=== PATIENT | female | born 1990 | race Caucasian/White ===

== ENCOUNTER 2017-01-23 18:12 | Emergency (ER) | payer MEDICAID ==
[~2017-01-23] VITALS: Ht 154.9 cm; Wt 52.0 kg
[2017-01-23 18:15] VITALS: BP 113/62; PULSE 81; RESP 18; TEMP 97.4; O2SAT 97
--- NOTE | 2017-01-23 18:17 | PD ---
Physical Exam Time Seen by Provider: 18:15 Narrative 26 y/o female with cp, nausea, back pain which started while sitting on a couch. Vital signs reviewed Seen at triage desk. awaiting bed placement. Data Data Last Documented VS Vital Signs Date Time Temp Pulse Resp B/P Pulse Ox O2 Delivery O2 Flow Rate FiO2 01/23/17 18:15 97.4 81 18 113/62 97 MDM Medical Record Reviewed: Yes Supervised Visit with RAVINDER: Nathanael Batista January 23, 2017 18:17
[2017-01-23] MEDS ORDERED: ONDANSETRON HCL 4 MG/2 ML VIAL IVP ONE (18:45)
[2017-01-23] MEDS ORDERED: SODIUM CHLORIDE 0.9% FLUSH 10 ML FLUSH IVF PRN ×2 (18:45)
[2017-01-23] MEDS ORDERED: SODIUM CHLORID 0.9% 500 ML INJ 500 ML IV ONE (18:45)
[2017-01-23] MEDS ORDERED: FAMOTIDINE 20 MG/2 ML VIAL IV PUSH ONE (18:45)
[2017-01-23 18:48] VITALS: BP 125/66; PULSE 68; RESP 16; O2SAT 100
--- NOTE | 2017-01-23 18:55 | PD ---
HPI Chief Complaint: Chest Pain Time Seen by Provider: 18:20 Travel History International Travel<30 days: No Contact w/Intl Traveler<30days: No Traveled to known affect area: No History of Present Illness HPI Patient is a 26-year-old female presenting to the emergency department for evaluation of midsternal chest pain. Patient states it started approximately half an hour prior to arrival. She reports that the pain radiates through to her back, she had an episode of dry heaves at home and reports a headache currently. She also reports epigastric abdominal pain but denies any indigestion, heartburn. She denies any shortness of breath. Patient is a type II diabetic not on any medications currently. She saw her criminal justice lawyer 6 months ago and states was perfect per her report. Patient does not check her blood glucose at home, she endorses daily tobacco use. [facility] Past Medical History Diabetes: Yes Medical other: Yes (mitral valve prolapse) ?: Not Past Surgical History Section: Yes Other Surgery: Yes (wrist) Social History Alcohol Use: Yes (occasionally) Tobacco Use: Yes (daily) Substance Use: No Allergies-Medications (Allergen,Severity, Reaction): Coded Allergies: No Known Allergies (Unverified , 01/23/17) Review of Systems Except as stated in HPI: all other systems reviewed are Neg HENT: Positive: Headaches Cardiovascular: Positive: Chest Pain or Discomfort Respiratory: No: Shortness of Breath Gastrointestinal: Positive: Nausea, Vomiting, Abdominal Pain (epigastric) Genitourinary: No: Dysuria Musculoskeletal: No: Myalgias Neurologic: No: Dizziness, Focal Abnormalities, Change in Mentation Physical Exam Narrative GENERAL: Well-developed, well-nourished, alert female. Appears uncomfortable, in no acute distress. SKIN: Focused skin assessment warm/dry. HEAD: Atraumatic. Normocephalic. EYES: Pupils equal and round. No scleral icterus. No injection or drainage. ENT: No nasal bleeding or discharge. Mucous membranes pink and moist. NECK: Trachea midline. No JVD. CARDIOVASCULAR: Regular rate and rhythm. No murmur appreciated. RESPIRATORY: No accessory muscle use. Clear to auscultation. Breath sounds equal bilaterally. GASTROINTESTINAL: Abdomen soft, mildly tender to epigastric region, nondistended. Hepatic and splenic margins not palpable. MUSCULOSKELETAL: No obvious deformities. No clubbing. No cyanosis. No edema. NEUROLOGICAL: Awake and alert. No obvious cranial nerve deficits. Motor grossly within normal limits. Normal speech. PSYCHIATRIC: Appropriate mood and affect; insight and judgment normal. Data Data Last Documented VS Vital Signs Date Time Temp Pulse Resp B/P Pulse Ox O2 Delivery O2 Flow Rate FiO2 01/23/17 18:48 100 Room Air 01/23/17 18:48 68 16 125/66 01/23/17 18:15 97.4 Orders Electrocardiogram (01/23/17 ) Ckmb (Isoenzyme) Profile (01/23/17 18:35) Complete Blood Count With Diff (01/23/17 18:35) Comprehensive Metabolic Panel (01/23/17 18:35) Magnesium (Mg) (01/23/17 18:35) Prothrombin Time / Inr (Pt) (01/23/17 18:35) Act Partial Throm Time (Ptt) (01/23/17 18:35) Troponin I (01/23/17 18:35) Chest, Single Ap (01/23/17 18:35) Ecg Monitoring (01/23/17 18:35) Bilateral Bp Monitoring (01/23/17 18:35) Iv Access Insert/Monitor (01/23/17 18:35) Oximetry (01/23/17 18:35) Oxygen Administration (01/23/17 18:35) Sodium Chloride 0.9% Flush (Ns Flush) (01/23/17 18:45) Sodium Chlorid 0.9% 500 Ml Inj (Ns 500 M (01/23/17 18:45) Ed Urine Pregnancytest Poc (01/23/17 18:35) Ondansetron Inj (Zofran Inj) (01/23/17 18:45) Sodium Chloride 0.9% Flush (Ns Flush) (01/23/17 18:45) Famotidine Inj (Pepcid Inj) (01/23/17 18:45) Al-Mag Hy-Si 40-40-4 Mg/Ml Liq (Mag-Al P (01/23/17 19:45) Lidocaine 2% Viscous (Xylocaine 2% Visco (01/23/17 19:45) Labs Laboratory Tests Test 01/23/17 18:40 White Blood Count 11.0 TH/MM3 Red Blood Count 4.02 MIL/MM3 Hemoglobin 12.8 GM/DL Hematocrit 37.0 % Mean Corpuscular Volume 92.0 FL Mean Corpuscular Hemoglobin 31.9 PG Mean Corpuscular Hemoglobin 34.6 % Concent Red Cell Distribution Width 12.5 % Platelet Count 220 TH/MM3 Mean Platelet Volume 8.2 FL Neutrophils (%) (Auto) 53.6 % Lymphocytes (%) (Auto) 35.7 % Monocytes (%) (Auto) 5.0 % Eosinophils (%) (Auto) 5.0 % Basophils (%) (Auto) 0.7 % Neutrophils # (Auto) 5.9 TH/MM3 Lymphocytes # (Auto) 3.9 TH/MM3 Monocytes # (Auto) 0.5 TH/MM3 Eosinophils # (Auto) 0.5 TH/MM3 Basophils # (Auto) 0.1 TH/MM3 CBC Comment DIFF FINAL Differential Comment Prothrombin Time 11.1 SEC Prothromb Time International 1.0 RATIO Ratio Activated Partial 26.7 SEC Thromboplast Time Sodium Level 140 MEQ/L Potassium Level 4.0 MEQ/L Chloride Level 105 MEQ/L Carbon Dioxide Level 25.8 MEQ/L Anion Gap 9 MEQ/L Blood Urea Nitrogen 11 MG/DL Creatinine 0.73 MG/DL Estimat Glomerular Filtration 96 ML/MIN Rate Random Glucose 134 MG/DL Calcium Level 8.2 MG/DL Magnesium Level 2.2 MG/DL Total Bilirubin 0.3 MG/DL Aspartate Amino Transf 25 U/L (AST/SGOT) Alanine Aminotransferase 22 U/L (ALT/SGPT) Alkaline Phosphatase 49 U/L Total Creatine Kinase 99 U/L Troponin I LESS THAN 0.02 NG/ML Total Protein 7.4 GM/DL Albumin 4.2 GM/DL MDM Medical Decision Making Medical Screen Exam Complete: Yes Emergency Medical Condition: Yes Interpretation(s) Last Impressions Chest X-Ray 01/23/17 3034 Signed Impressions: Service Date/Time: Monday, January 23, 2017 18:57 - CONCLUSION: Mild right middle lobe infiltrate Jay Patel MD Laboratory Tests Test 01/23/17 18:40 White Blood Count 11.0 TH/MM3 Red Blood Count 4.02 MIL/MM3 Hemoglobin 12.8 GM/DL Hematocrit 37.0 % Mean Corpuscular Volume 92.0 FL Mean Corpuscular Hemoglobin 31.9 PG Mean Corpuscular Hemoglobin 34.6 % Concent Red Cell Distribution Width 12.5 % Platelet Count 220 TH/MM3 Mean Platelet Volume 8.2 FL Neutrophils (%) (Auto) 53.6 % Lymphocytes (%) (Auto) 35.7 % Monocytes (%) (Auto) 5.0 % Eosinophils (%) (Auto) 5.0 % Basophils (%) (Auto) 0.7 % Neutrophils # (Auto) 5.9 TH/MM3 Lymphocytes # (Auto) 3.9 TH/MM3 Monocytes # (Auto) 0.5 TH/MM3 Eosinophils # (Auto) 0.5 TH/MM3 Basophils # (Auto) 0.1 TH/MM3 CBC Comment DIFF FINAL Differential Comment Prothrombin Time 11.1 SEC Prothromb Time International 1.0 RATIO Ratio Activated Partial 26.7 SEC Thromboplast Time Sodium Level 140 MEQ/L Potassium Level 4.0 MEQ/L Chloride Level 105 MEQ/L Carbon Dioxide Level 25.8 MEQ/L Anion Gap 9 MEQ/L Blood Urea Nitrogen 11 MG/DL Creatinine 0.73 MG/DL Estimat Glomerular Filtration 96 ML/MIN Rate Random Glucose 134 MG/DL Calcium Level 8.2 MG/DL Magnesium Level 2.2 MG/DL Total Bilirubin 0.3 MG/DL Aspartate Amino Transf 25 U/L (AST/SGOT) Alanine Aminotransferase 22 U/L (ALT/SGPT) Alkaline Phosphatase 49 U/L Total Creatine Kinase 99 U/L Troponin I LESS THAN 0.02 NG/ML Total Protein 7.4 GM/DL Albumin 4.2 GM/DL Vital Signs Date Time Temp Pulse Resp B/P Pulse Ox O2 Delivery O2 Flow Rate FiO2 01/23/17 18:48 100 Room Air 01/23/17 18:15 97.4 81 18 113/62 97 Differential Diagnosis Heartburn versus AMI versus gastritis versus arrhythmia versus other Narrative Course Patient is a 26-year-old female presenting to the emergency department evaluation of midsternal epigastric pain. Pain started 30 minutes prior to arrival. Patient's vital signs are stable, EKG shows sinus rhythm. Labs and imaging Ordered and pending. CBC is unremarkable CK-MB and troponin are unremarkable Chemistry is unremarkable Coags are unremarkable Chest x-ray shows a mild right middle lobe infiltrate. She will be treated with antibiotics as outpatient. She continues to complain of mild epigastric/ midsternal pain, she will be given a GI cocktail at this time. 2020-she reassess, she is resting comfortably, pain has resolved. Diagnosis Primary Impression: Pneumonia Qualified Code: J18.1 - Pneumonia of right middle lobe due to infectious organism Additional Impression: Epigastric burning sensation Referrals: [facility] Primary Care Physician Patient Instructions: Community Acquired Pneumonia (ED), Epigastric Pain (ED), General Instructions Additional Instructions: Follow-up with her primary doctor or at the [facility] clinic Complete full course of antibiotics as prescribed Return to emergency department for any new or worsening symptoms Med/Other Pt SpecificInfo: Prescription(s) given Scripts Qrihiore-Fxgfotcvw-Atckdrsrerd Liq (Maalox Max Liq)400-400-40 Mg/5 Ml Susp10 Ml PO QID PRN (INDIGESTION) 7 Days Ref 0 Take between meals or as directed. Shake well. Maximum 60 ml/24 hrs. Prov:Jessica Reid 01/23/17 Ranitidine 150 Mg [id number] Mg PO BID 30 Days Ref 0 Prov:Jessica Reid 01/23/17 Azithromycin 250 Mg [id number] Mg PO DIRECTED #6 TAB Ref 0 Take 2 tabs (500 mg) on day 1 then 1 tab daily x 4 days. Prov:Jessica Reid 01/23/17 Disposition: 01 DISCHARGE HOME Condition: Stable Jessica Reid January 23, 2017 18:55
[2017-01-23 19:12] LABS: APTT (PATIENT) 26.7 SEC (24.3-30.1); PROTHROMBIN TIME - PATIENT 11.1 SEC (9.8-11.6)
[2017-01-23 19:17] LABS: AUTOMATED NEUTROPHIL # 5.9 TH/MM3 (1.8-7.7); BASOPHIL # 0.1 TH/MM3 (0-0.2); BASOPHIL % 0.7 % (0.0-2.0); EOSINOPHIL # 0.5 TH/MM3 (0-0.4); HEMO FLAGS DIFF FINAL; LYMPH % 35.7 % (9.0-44.0); LYMPHOCYTE # 3.9 TH/MM3 (1.0-4.8); MEAN CORPUSCULAR HEMOGLOBIN 31.9 PG (27.0-34.0); MEAN CORPUSCULAR HGB CONC 34.6 % (32.0-36.0); NEUT % 53.6 % (16.0-70.0); PLATELET COUNT 220 TH/MM3 (150-450); RED BLOOD COUNT 4.02 MIL/MM3 (4.00-5.30); RED CELL DISTRIBUTION WIDTH 12.5 % (11.6-17.2)
--- NOTE | 2017-01-23 19:24 | RADRPT ---
EXAM DATE/TIME: 01/23/2017 18:57 [place] COMPARISON: No previous studies available for comparison. INDICATIONS : Chest pain, shortness of breath, vomiting. MEDICAL HISTORY : Diabetes mellitus type II. Smoker. SURGICAL HISTORY : None. ENCOUNTER: Initial ACUITY: 1 day PAIN SCORE: 6/10 LOCATION: Bilateral chest FINDINGS: There appears to be mild infiltrate in the middle lobe. Left lung is grossly clear. Cardiac contours are satisfactory. No effusion is present. CONCLUSION: Mild right middle lobe infiltrate Jay Patel MD on January 23, 2017 at 19:21 Board Certified Radiologist. This report was verified electronically.
[2017-01-23 19:35] LABS: ALKALINE PHOSPHATASE 49 U/L (45-117); ALT (GPT) 22 U/L (10-53); ANION GAP 9 MEQ/L (5-15); AST (GOT) 25 U/L (15-37); BICARBONATE 25.8 MEQ/L (21.0-32.0); BLOOD UREA NITROGEN 11 MG/DL (7-18); CHLORIDE 105 MEQ/L (98-107); GLOMERULAR FILTRATION RATE 96 ML/MIN (>89); MAGNESIUM 2.2 MG/DL (1.5-2.5); SODIUM (NA) 140 MEQ/L (136-145); TOTAL BILIRUBIN ADULT 0.3 MG/DL (0.2-1.0)
[2017-01-23 19:36] LABS: CREATINE KINASE 99 U/L (26-192)
[2017-01-23] MEDS ORDERED: LIDOCAINE VISCOUS 2% SOLN 15 ML UDC PO ONE (19:45)
[2017-01-23] MEDS ORDERED: ALUMINUM/MAGNESIUM/SIMETH 30 ML CUP PO ONE (19:45)
[2017-01-23] MEDS ORDERED: RANI150T PO (20:22)
[2017-01-23] MEDS ORDERED: AZIT250T3 PO (20:22)
[2017-01-23] MEDS ORDERED: MAALSUS PO (20:22)
[2017-01-23 20:37] VITALS: BP 121/58
--- NOTE | 2017-01-24 08:47 | EKG ---
Date Performed: 01/23/2017 Time Performed: 18:31:53 PTAGE: 26 years EKG: Sinus rhythm WITH SINUS ARRHYTHMIA NORMAL ECG NO PREVIOUS TRACING DOCTOR: Armando Wesley Interpretating Date/Time 01/24/2017 08:46:51
== END 2017-01-23 21:29 | disposition home or self-care (01) ==
LOC: NEPD 18:12
DX: J18.1 Lobar pneumonia, unspecified organism (principal); R10.13 Epigastric pain; M54.9 Dorsalgia, unspecified; R51 Headache; E11.9 Type 2 diabetes mellitus without complications; Z72.0 Tobacco use; Z86.79 Personal history of other diseases of the circulatory system
CPT/HCPCS: 71010; 80053; 82550; 83735; 84484; 84703; 85025; 85610; 85730; 93005; 96374; 96375; 99285; J2405; J7040